=== PATIENT | male | born 1955 | race Caucasian/White ===

== ENCOUNTER 2016-07-17 15:03 | Outpatient (CLI) | payer MEDICARE ==
[2016-07-17 15:36] LABS: INR-International Normal Ratio 3.9; Prothrombin Time 37.6 SEC (12.0-14.7)
== END 2016-07-17 15:04 | disposition home or self-care (01) ==
LOC: MADLAB 15:03
PROVIDERS: ATTEND Internal Medicine Cardiovascular Disease
DX: I48.91 Unspecified atrial fibrillation (principal)
CPT/HCPCS: 36415; 85610

== ENCOUNTER 2016-07-24 15:03 | Outpatient (CLI) | payer MEDICARE ==
[2016-07-24 15:50] LABS: INR-International Normal Ratio 3.8; Prothrombin Time 36.5 SEC (12.0-14.7)
== END 2016-07-24 15:04 | disposition home or self-care (01) ==
LOC: MADLABBHPM 15:03
PROVIDERS: ATTEND Internal Medicine Cardiovascular Disease
DX: I48.1 Persistent atrial fibrillation (principal)
CPT/HCPCS: 36415; 85610

== ENCOUNTER 2016-07-31 15:16 | Outpatient (CLI) | payer MEDICARE ==
[2016-07-31 15:45] LABS: INR-International Normal Ratio 3.9; Prothrombin Time 37.3 SEC (12.0-14.7)
== END 2016-07-31 15:17 | disposition home or self-care (01) ==
LOC: MADLABBHPM 15:16
PROVIDERS: ATTEND Family Medicine
DX: I48.1 Persistent atrial fibrillation (principal)
CPT/HCPCS: 36415; 85610

== ENCOUNTER 2016-08-07 15:21 | Outpatient (CLI) | payer MEDICARE ==
[2016-08-07 16:09] LABS: INR-International Normal Ratio 2.5; Prothrombin Time 27.2 SEC (12.0-14.7)
== END 2016-08-07 15:22 | disposition home or self-care (01) ==
LOC: MADLAB 15:21
PROVIDERS: ATTEND Internal Medicine Cardiovascular Disease
DX: I48.1 Persistent atrial fibrillation (principal)
CPT/HCPCS: 85610

== ENCOUNTER 2016-08-15 10:36 | Outpatient (CLI) | payer MEDICARE ==
[2016-08-15 11:06] LABS: Prothrombin Time 30.6 SEC (12.0-14.7)
== END 2016-08-15 10:37 ==
LOC: MADLABBHPM 10:36
PROVIDERS: ATTEND Nurse Practitioner Adult Health
DX: I48.91 Unspecified atrial fibrillation (principal); E03.9 Hypothyroidism, unspecified; N18.3 Chronic kidney disease, stage 3 (moderate); G40.309 Generalized idiopathic epilepsy and epileptic syndromes, not intractable, without status epilepticus
CPT/HCPCS: 36415; 85610

== ENCOUNTER 2016-08-21 15:28 | Outpatient (CLI) | payer MEDICARE ==
[2016-08-21 15:47] LABS: INR-International Normal Ratio 1.9; Prothrombin Time 21.5 SEC (12.0-14.7)
== END 2016-08-21 15:29 | disposition home or self-care (01) ==
LOC: MADLAB 15:28
PROVIDERS: ATTEND Nurse Practitioner Adult Health
DX: I48.1 Persistent atrial fibrillation (principal)
CPT/HCPCS: 36415; 85610

== ENCOUNTER 2016-08-29 13:46 | Outpatient (CLI) | payer MEDICARE ==
[2016-08-29 14:15] LABS: INR-International Normal Ratio 2.3; Prothrombin Time 24.8 SEC (12.0-14.7)
== END 2016-08-29 13:47 | disposition home or self-care (01) ==
LOC: MADLAB 13:46
PROVIDERS: ATTEND Internal Medicine Cardiovascular Disease
DX: I48.1 Persistent atrial fibrillation (principal)
CPT/HCPCS: 36415; 85610

== ENCOUNTER 2016-09-25 11:51 | Outpatient (CLI) | payer MEDICARE ==
[2016-09-25 12:28] LABS: INR-International Normal Ratio 2.3; Prothrombin Time 25.1 SEC (12.0-14.7)
== END 2016-09-25 11:52 | disposition home or self-care (01) ==
LOC: MADLAB 11:51
PROVIDERS: ATTEND Internal Medicine Cardiovascular Disease
DX: I48.1 Persistent atrial fibrillation (principal)
CPT/HCPCS: 36415; 85610

== ENCOUNTER 2016-10-03 10:10 | Outpatient (CLI) | payer MEDICARE ==
[2016-10-03 10:57] LABS: INR-International Normal Ratio 4.1
== END 2016-10-03 10:11 | disposition home or self-care (01) ==
LOC: MADLAB 10:10
PROVIDERS: ATTEND Internal Medicine Cardiovascular Disease
DX: I48.1 Persistent atrial fibrillation (principal)
CPT/HCPCS: 36415; 85610

== ENCOUNTER 2016-10-10 10:32 | Outpatient (CLI) | payer MEDICARE ==
[2016-10-10 11:30] LABS: INR-International Normal Ratio 2.9; Prothrombin Time 29.7 SEC (12.0-14.7)
== END 2016-10-10 10:33 | disposition home or self-care (01) ==
LOC: MADLAB 10:32
PROVIDERS: ATTEND Internal Medicine Cardiovascular Disease
DX: I48.1 Persistent atrial fibrillation (principal)
CPT/HCPCS: 36415; 85610

== ENCOUNTER 2016-10-11 11:31 | Outpatient (CLI) | payer MEDICARE ==
[2016-10-11 15:25] LABS: INR-International Normal Ratio 2.8; Prothrombin Time 29.1 SEC (12.0-14.7)
== END 2016-10-11 11:32 | disposition home or self-care (01) ==
LOC: MADLAB 11:31
PROVIDERS: ATTEND Internal Medicine Cardiovascular Disease
DX: E78.5 Hyperlipidemia, unspecified (principal); I48.2 Chronic atrial fibrillation; K21.9 Gastro-esophageal reflux disease without esophagitis
CPT/HCPCS: 36415; 85610

== ENCOUNTER 2016-10-24 13:34 | Outpatient (CLI) | payer MEDICARE ==
[2016-10-24 13:49] LABS: INR-International Normal Ratio 3.4; Prothrombin Time 34.2 SEC (12.0-14.7)
== END 2016-10-24 13:35 | disposition home or self-care (01) ==
LOC: MADLAB 13:34
PROVIDERS: ATTEND Emergency Medicine
DX: Z51.81 Encounter for therapeutic drug level monitoring (principal); Z79.01 Long term (current) use of anticoagulants; I48.2 Chronic atrial fibrillation
CPT/HCPCS: 36415; 85610

== ENCOUNTER 2016-11-08 16:52 | Outpatient (CLI) | payer MEDICARE ==
[2016-11-08 17:45] LABS: Prothrombin Time 44.6 SEC (12.0-14.7)
[2016-11-08 17:46] LABS: INR-International Normal Ratio 4.9
== END 2016-11-08 16:53 | disposition home or self-care (01) ==
LOC: MADLABSP 16:52
PROVIDERS: ATTEND Family Medicine
DX: Z51.81 Encounter for therapeutic drug level monitoring (principal); Z79.01 Long term (current) use of anticoagulants
CPT/HCPCS: 85610

== ENCOUNTER 2016-11-15 14:45 | Outpatient (CLI) | payer MEDICARE ==
[2016-11-15 15:32] LABS: INR-International Normal Ratio 3.3; Prothrombin Time 33.2 SEC (12.0-14.7)
== END 2016-11-15 14:46 | disposition home or self-care (01) ==
LOC: MADLABBHPM 14:45
PROVIDERS: ATTEND Family Medicine
DX: Z51.81 Encounter for therapeutic drug level monitoring (principal); I48.1 Persistent atrial fibrillation; Z79.01 Long term (current) use of anticoagulants
CPT/HCPCS: 36415; 85610

== ENCOUNTER 2016-11-23 15:21 | Outpatient (CLI) | payer MEDICARE ==
[2016-11-23 17:14] LABS: Prothrombin Time 43.1 SEC (12.0-14.7)
[2016-11-23 17:23] LABS: INR-International Normal Ratio 4.7
== END 2016-11-23 15:22 | disposition home or self-care (01) ==
LOC: MADLAB 15:21
PROVIDERS: ATTEND Internal Medicine Cardiovascular Disease
DX: I48.1 Persistent atrial fibrillation (principal)
CPT/HCPCS: 36415; 85610

== ENCOUNTER 2016-11-29 11:32 | Outpatient (CLI) | payer MEDICARE ==
[2016-11-29 12:07] LABS: INR-International Normal Ratio 2.8; Prothrombin Time 29.4 SEC (12.0-14.7)
== END 2016-11-29 11:33 | disposition home or self-care (01) ==
LOC: MADLAB 11:32
PROVIDERS: ATTEND Internal Medicine Cardiovascular Disease
DX: I48.1 Persistent atrial fibrillation (principal)
CPT/HCPCS: 36415; 85610

== ENCOUNTER 2016-12-14 14:41 | Outpatient (CLI) | payer MEDICARE ==
[2016-12-14 15:04] LABS: INR-International Normal Ratio 2.9; Prothrombin Time 30.2 SEC (12.0-14.7)
== END 2016-12-14 14:42 | disposition home or self-care (01) ==
LOC: MADLAB 14:41
PROVIDERS: ATTEND Internal Medicine Cardiovascular Disease
DX: I48.1 Persistent atrial fibrillation (principal)
CPT/HCPCS: 36415; 85610

== ENCOUNTER 2016-12-28 11:11 | Outpatient (CLI) | payer MEDICARE ==
[2016-12-28 11:33] LABS: INR-International Normal Ratio 3.1; Prothrombin Time 33.1 SEC (12.0-14.7)
== END 2016-12-28 11:12 | disposition home or self-care (01) ==
LOC: MADLAB 11:11
PROVIDERS: ATTEND Internal Medicine Cardiovascular Disease
DX: I48.1 Persistent atrial fibrillation (principal)
CPT/HCPCS: 36415; 85610

== ENCOUNTER 2017-01-16 10:53 | Outpatient (CLI) | payer MEDICARE ==
[2017-01-16 11:38] LABS: INR-International Normal Ratio 3.1; Prothrombin Time 33.3 SEC (12.0-14.7)
== END 2017-01-16 10:54 | disposition home or self-care (01) ==
LOC: MADLAB 10:53
PROVIDERS: ATTEND Internal Medicine Cardiovascular Disease
DX: I48.1 Persistent atrial fibrillation (principal)
CPT/HCPCS: 36415; 85610

== ENCOUNTER 2017-02-16 14:42 | Outpatient (CLI) | payer MEDICARE ==
[2017-02-16 15:38] LABS: INR-International Normal Ratio 3.4; Prothrombin Time 35.6 SEC (12.0-14.7)
== END 2017-02-16 14:43 | disposition home or self-care (01) ==
LOC: MADLAB 14:42
PROVIDERS: ATTEND Internal Medicine Cardiovascular Disease
DX: I48.1 Persistent atrial fibrillation (principal)
CPT/HCPCS: 36415; 85610

== ENCOUNTER 2017-03-01 11:02 | Outpatient (CLI) | payer MEDICARE ==
[2017-03-01 11:27] LABS: INR-International Normal Ratio 2.6; Prothrombin Time 29.2 SEC (12.0-14.7)
== END 2017-03-01 11:03 | disposition home or self-care (01) ==
LOC: MADLAB 11:02
PROVIDERS: ATTEND Internal Medicine Cardiovascular Disease
DX: I48.1 Persistent atrial fibrillation (principal)
CPT/HCPCS: 36415; 85610

== ENCOUNTER 2017-03-28 17:33 | Outpatient (CLI) | payer MEDICARE ==
[2017-03-29 15:20] LABS: Prothrombin Time 30.4 SEC (12.0-14.7)
[2017-03-29 15:21] LABS: INR-International Normal Ratio 2.8
== END 2017-03-28 17:34 | disposition home or self-care (01) ==
LOC: MADLAB 17:33
PROVIDERS: ATTEND Internal Medicine Cardiovascular Disease
DX: I48.1 Persistent atrial fibrillation (principal)
CPT/HCPCS: 36415; 85610

== ENCOUNTER 2017-04-15 12:24 | Outpatient (CLI) | payer MEDICARE, SELFPAY ==
[2017-04-15 12:53] LABS: INR-International Normal Ratio 2.3; Prothrombin Time 25.8 SEC (12.0-14.7)
== END 2017-04-15 12:25 | disposition home or self-care (01) ==
LOC: MADLAB 12:24
PROVIDERS: ATTEND Internal Medicine Cardiovascular Disease
DX: Z51.81 Encounter for therapeutic drug level monitoring (principal); I48.1 Persistent atrial fibrillation; Z79.01 Long term (current) use of anticoagulants
CPT/HCPCS: 36415; 85610

== ENCOUNTER 2017-05-20 12:41 | Outpatient (CLI) | payer MEDICARE, SELFPAY ==
[2017-05-20 13:15] LABS: INR-International Normal Ratio 2.1
== END 2017-05-20 12:42 | disposition home or self-care (01) ==
LOC: MADLAB 12:41
PROVIDERS: ATTEND Internal Medicine Cardiovascular Disease
DX: I48.1 Persistent atrial fibrillation (principal)
CPT/HCPCS: 36415; 85610

== ENCOUNTER 2017-06-18 17:30 | Outpatient (CLI) | payer MEDICARE ==
[2017-06-18 18:29] LABS: INR-International Normal Ratio 2.2; Prothrombin Time 25.1 SEC (12.0-14.7)
== END 2017-06-18 17:31 | disposition home or self-care (01) ==
LOC: MADLAB 17:30
PROVIDERS: ATTEND Family Medicine
DX: Z51.81 Encounter for therapeutic drug level monitoring (principal); I48.91 Unspecified atrial fibrillation; Z79.01 Long term (current) use of anticoagulants
CPT/HCPCS: 36415; 85610

== ENCOUNTER 2017-07-23 09:44 | Outpatient (CLI) | payer MEDICARE ==
[2017-07-23 11:55] LABS: INR-International Normal Ratio 2.1; Prothrombin Time 24.7 SEC (12.0-14.7)
[2017-07-23 12:04] LABS: ALT (SGPT) 23 U/L (8-55); AST (SGOT) 26 U/L (5-34); Albumin 3.7 g/dL (3.4-4.8); Alkaline Phosphatase 59 U/L (40-150); Anion Gap 10 mmol/L (10-20); BUN (Urea Nitrogen) 20 mg/dL (8.4-25.7); Bilirubin, Direct 0.2 mg/dL (0.1-0.3); Bilirubin, Total 0.4 mg/dL (0.2-1.2); Calc. Creatinine Clearance 0 mL/min (70-130); Calcium 8.7 mg/dL (7.8-10.44); Carbon Dioxide 25 mmol/L (23-31); Cardiac Risk 4.5 (Less than 4.5); Chloride 109 mmol/L (98-107); Cholesterol 134 mg/dl (< 200 Desired); Estimated GFR-MDRD 63; Glucose 71 mg/dL (80-115); HDL Cholesterol 30 mg/dL (>60 Neg Risk); LDL Cholesterol, Calculated 82 mg/dL; Potassium 4.3 mmol/L (3.5-5.1); Sodium 140 mmol/L (136-145); Triglycerides 112 mg/dL (Less than 150)
[2017-07-23 12:07] LABS: #Basophils 0.1 thou/uL (0.0-0.2); #Eosinphils 0.1 thou/uL (0.0-0.7); #Lymphocytes 2.5 thou/uL (1.20-3.40); #Monocytes 0.8 thou/uL (0.11-0.59); %Basophils 1.2 % (0.0-1.0); %Eosinophils 1.6 % (0.0-10.0); %Lymphocytes 46.5 % (21.0-51.0); %Monocytes 14.1 % (0.0-10.0); %Neutrophils 36.6 % (42.0-75.0); Hemoglobin 13.9 g/dL (14.0-18.0); Large Platelets SLIGHT; MDiff Complete? YES; Mean Corpuscular HGB CONC 31.9 g/dL (32.0-36.0); Mean Corpuscular Hemoglobin 30.8 pg (27.0-31.0); Mean Corpuscular Volume 96.8 fl (80.0-94.0); Mean Platelet Volume 10.3 fL (7.4-10.4); PLT Morphology Comment Appears Decreased; Platelet Count 112 thou/uL (130-400); RBC Distribution Width 13.3 % (11.5-14.5); White Blood Cell (WBC) Count 5.3 thou/uL (4.8-10.8)
== END 2017-07-23 09:45 | disposition home or self-care (01) ==
LOC: MADLABBHPM 09:44
PROVIDERS: ATTEND Family Medicine
DX: E03.9 Hypothyroidism, unspecified (principal); I48.91 Unspecified atrial fibrillation; E78.5 Hyperlipidemia, unspecified; N18.3 Chronic kidney disease, stage 3 (moderate); G40.309 Generalized idiopathic epilepsy and epileptic syndromes, not intractable, without status epilepticus
CPT/HCPCS: 36415; 80048; 80061; 80076; 80164; 84443; 85025; 85610

== ENCOUNTER 2017-08-29 16:21 | Outpatient (CLI) | payer OTHER ==
[2017-08-29 17:07] LABS: INR-International Normal Ratio 2.4; Prothrombin Time 27.1 SEC (12.0-14.7)
== END 2017-08-29 16:22 | disposition home or self-care (01) ==
LOC: MADLAB 16:21
PROVIDERS: ATTEND Family Medicine
DX: Z51.81 Encounter for therapeutic drug level monitoring (principal); I48.91 Unspecified atrial fibrillation; Z79.01 Long term (current) use of anticoagulants
CPT/HCPCS: 36415; 85610

== ENCOUNTER 2017-10-03 15:57 | Outpatient (CLI) | payer MEDICARE, OTHER ==
[2017-10-03 16:27] LABS: INR-International Normal Ratio 1.8; Prothrombin Time 21.7 SEC (12.0-14.7)
== END 2017-10-03 15:58 | disposition home or self-care (01) ==
LOC: MADLAB 15:57
PROVIDERS: ATTEND Internal Medicine Cardiovascular Disease
DX: Z51.81 Encounter for therapeutic drug level monitoring (principal); I48.91 Unspecified atrial fibrillation; Z79.01 Long term (current) use of anticoagulants
CPT/HCPCS: 36415; 85610

== ENCOUNTER 2017-10-24 16:58 | Outpatient (CLI) | payer OTHER ==
[2017-10-24 17:28] LABS: Prothrombin Time 23.4 SEC (12.0-14.7)
== END 2017-10-24 16:59 | disposition home or self-care (01) ==
LOC: MADLAB 16:58
PROVIDERS: ATTEND Family Medicine
DX: Z51.81 Encounter for therapeutic drug level monitoring (principal); I48.91 Unspecified atrial fibrillation; Z79.01 Long term (current) use of anticoagulants
CPT/HCPCS: 36415; 85610

== ENCOUNTER 2017-11-11 12:38 | Outpatient (CLI) | payer MEDICARE ==
[2017-11-11 13:11] LABS: INR-International Normal Ratio 2.2; Prothrombin Time 25.6 SEC (12.0-14.7)
== END 2017-11-11 12:39 | disposition home or self-care (01) ==
LOC: MADLAB 12:38
PROVIDERS: ATTEND Internal Medicine Cardiovascular Disease
DX: Z51.81 Encounter for therapeutic drug level monitoring (principal); I48.91 Unspecified atrial fibrillation; Z79.01 Long term (current) use of anticoagulants
CPT/HCPCS: 36415; 85610

== ENCOUNTER 2017-11-26 16:50 | Outpatient (CLI) | payer SELFPAY ==
[2017-11-26 17:29] LABS: Anion Gap 15 mmol/L (10-20); BUN (Urea Nitrogen) 15 mg/dL (8.4-25.7); Calc. Creatinine Clearance 0 mL/min (70-130); Carbon Dioxide 23 mmol/L (23-31); Chloride 105 mmol/L (98-107); Estimated GFR-MDRD 63; Glucose 91 mg/dL (80-115); Potassium 4.5 mmol/L (3.5-5.1); Sodium 138 mmol/L (136-145)
[2017-11-26 17:40] LABS: INR-International Normal Ratio 2.3; Prothrombin Time 26.5 SEC (12.0-14.7)
--- NOTE | 2017-11-26 17:48 | RAD ---
RADIOGRAPH LEFT FOREARM TWO VIEWS: HISTORY: A 61-year-old male, status post acute trauma to left forearm. FINDINGS: No fracture or the radius or ulna. Soft tissue swelling throughout the dorsum of the forearm. IMPRESSION: 1. Acute, traumatic soft tissue contusion of the posterior aspect of the forearm. 2. No fracture of the radius or ulna. POS: [facility]
== END 2017-11-26 16:51 | disposition home or self-care (01) ==
LOC: MADRAD 16:50
PROVIDERS: ATTEND Family Medicine
DX: Z51.81 Encounter for therapeutic drug level monitoring (principal); T14.8XXA Other injury of unspecified body region, initial encounter; N18.3 Chronic kidney disease, stage 3 (moderate); I48.91 Unspecified atrial fibrillation; S50.12XA Contusion of left forearm, initial encounter
CPT/HCPCS: 36415; 80048; 85610

== ENCOUNTER 2017-12-11 12:47 | Outpatient (CLI) | payer OTHER, SELFPAY ==
[2017-12-11 13:35] LABS: INR-International Normal Ratio 2.4; Prothrombin Time 26.1 SEC (12.0-14.7)
[2017-12-11 13:46] LABS: ALT (SGPT) 22 U/L (8-55); AST (SGOT) 23 U/L (5-34); Albumin 3.8 g/dL (3.4-4.8); Alkaline Phosphatase 77 U/L (40-150); Anion Gap 14 mmol/L (10-20); BUN (Urea Nitrogen) 15 mg/dL (8.4-25.7); Bilirubin, Direct 0.2 mg/dL (0.1-0.3); Bilirubin, Total 0.4 mg/dL (0.2-1.2); Calc. Creatinine Clearance 0 mL/min (70-130); Carbon Dioxide 20 mmol/L (23-31); Cardiac Risk 4.1 (Less than 4.5); Chloride 109 mmol/L (98-107); Cholesterol 122 mg/dl (< 200 Desired); Estimated GFR-MDRD 55; Glucose 135 mg/dL (80-115); HDL Cholesterol 30 mg/dL (>60 Neg Risk); LDL Cholesterol, Calculated 58 mg/dL; Potassium 4.2 mmol/L (3.5-5.1); Protein, Total 7.4 g/dL (5.8-8.1); Sodium 139 mmol/L (136-145); Triglycerides 169 mg/dL (Less than 150)
[2017-12-11 14:07] LABS: Hemoglobin 13.5 g/dL (14.0-18.0); Lymphocytes 29 % (21-51); MDiff Complete? YES; Mean Corpuscular HGB CONC 32.1 g/dL (32.0-36.0); Mean Corpuscular Hemoglobin 29.1 pg (27.0-31.0); Mean Corpuscular Volume 90.6 fL (78.0-98.0); Mean Platelet Volume 9.5 fL (7.4-10.4); Monocytes 6 % (0-10); Neutrophil 65 % (42-75); PLT Morphology Comment Appears Adequate; Platelet Count 124 thou/uL (130-400); RBC Distribution Width 14.1 % (11.5-14.5); Red Blood Cell (RBC) Count 4.64 mill/uL (4.70-6.10); White Blood Cell (WBC) Count 5.5 thou/uL (4.8-10.8)
== END 2017-12-11 12:48 | disposition home or self-care (01) ==
LOC: MADLABBHPM 12:47
PROVIDERS: ATTEND Family Medicine
DX: Z51.81 Encounter for therapeutic drug level monitoring (principal); N18.3 Chronic kidney disease, stage 3 (moderate); I48.91 Unspecified atrial fibrillation; E78.5 Hyperlipidemia, unspecified; D69.6 Thrombocytopenia, unspecified; Z79.01 Long term (current) use of anticoagulants
CPT/HCPCS: 36415; 80048; 80061; 80076; 84443; 85025; 85610

== ENCOUNTER → 2017-12-11 | Emergency (ER) | payer SELFPAY ==
[~2017-12-11] MED LIST: Diltiazem 125 MG/25 ML ONE; Furosemide 40 MG/4 ML VIAL ONE; Metoprolol Tartrate 5 MG/5 ML VIAL ONE; Sodium Chloride 0.9% 100 ML BAG ONE; Sodium Chloride 0.9% 500 ML BAG ONE
--- NOTE | 2017-12-11 14:43 | RAD ---
CHEST 2 VIEWS: Date: 12/11/17 HISTORY: Tachycardia. Dyspnea. COMPARISON: 07/05/15. FINDINGS: Cardiac silhouette is upper limits of normal in size. Pulmonary vasculature is unremarkable. Mediasti num is midline. Electronic stimulator pack overlies the left anterior chest wall. There is no conflue nt air space consolidation, pneumothorax, or pleural fluid. IMPRESSION: No active cardiopulmonary abnormalities are demonstrated. POS: [facility]
== END ==
LOC: MADERS 14:14
DX: I48.92 Unspecified atrial flutter (principal); E87.70 Fluid overload, unspecified; E03.9 Hypothyroidism, unspecified; E78.5 Hyperlipidemia, unspecified; G40.909 Epilepsy, unspecified, not intractable, without status epilepticus; N18.9 Chronic kidney disease, unspecified; F17.220 Nicotine dependence, chewing tobacco, uncomplicated; Z79.899 Other long term (current) drug therapy; Z79.01 Long term (current) use of anticoagulants
CPT/HCPCS: 71046; 83880; 93005; 96365; 96375; 96376; J1940; J7050

== ENCOUNTER 2017-12-24 12:17 | Outpatient (CLI) | payer OTHER, SELFPAY ==
[2017-12-24 12:43] LABS: INR-International Normal Ratio 2.8; Prothrombin Time 29.8 SEC (12.0-14.7)
== END 2017-12-24 12:18 | disposition home or self-care (01) ==
LOC: MADLABBHPM 12:17
PROVIDERS: ATTEND Family Medicine
DX: I48.91 Unspecified atrial fibrillation (principal)
CPT/HCPCS: 36415; 85610

== ENCOUNTER 2018-03-10 13:09 | Outpatient (CLI) | payer OTHER, SELFPAY ==
[2018-03-10 13:26] LABS: INR-International Normal Ratio 2.5; Prothrombin Time 27.3 SEC (12.0-14.7)
== END 2018-03-10 13:10 | disposition home or self-care (01) ==
LOC: MADLAB 13:09
PROVIDERS: ATTEND Family Medicine
DX: Z51.81 Encounter for therapeutic drug level monitoring (principal); I48.91 Unspecified atrial fibrillation; Z79.01 Long term (current) use of anticoagulants
CPT/HCPCS: 36415; 85610

== ENCOUNTER 2018-04-13 11:00 | Outpatient (CLI) | payer OTHER, SELFPAY ==
[2018-04-13 12:07] LABS: Prothrombin Time 43.1 SEC (12.0-14.7)
[2018-04-13 14:01] LABS: INR-International Normal Ratio 4.6
== END 2018-04-13 11:01 | disposition home or self-care (01) ==
LOC: MADLAB 11:00
PROVIDERS: ATTEND Family Medicine
DX: Z51.81 Encounter for therapeutic drug level monitoring (principal); I48.91 Unspecified atrial fibrillation; Z79.01 Long term (current) use of anticoagulants
CPT/HCPCS: 36415; 85610

== ENCOUNTER 2018-04-15 16:36 | Outpatient (CLI) | payer MEDICARE, OTHER ==
[2018-04-15 17:23] LABS: INR-International Normal Ratio 2.5; Prothrombin Time 26.7 SEC (12.0-14.7)
== END 2018-04-15 16:37 | disposition home or self-care (01) ==
LOC: MADLAB 16:36
PROVIDERS: ATTEND Family Medicine
DX: Z51.81 Encounter for therapeutic drug level monitoring (principal); I48.91 Unspecified atrial fibrillation; Z79.01 Long term (current) use of anticoagulants
CPT/HCPCS: 36415; 85610

== ENCOUNTER 2018-04-21 12:45 | Outpatient (CLI) | payer OTHER ==
[2018-04-21 13:17] LABS: INR-International Normal Ratio 2.1; Prothrombin Time 23.6 SEC (12.0-14.7)
== END 2018-04-21 12:46 | disposition home or self-care (01) ==
LOC: MADLAB 12:45
PROVIDERS: ATTEND Family Medicine
DX: Z51.81 Encounter for therapeutic drug level monitoring (principal); I48.91 Unspecified atrial fibrillation; Z79.01 Long term (current) use of anticoagulants
CPT/HCPCS: 36415; 85610

== ENCOUNTER 2018-05-05 13:12 | Outpatient (CLI) | payer OTHER ==
[2018-05-05 13:34] LABS: INR-International Normal Ratio 2.1; Prothrombin Time 23.8 SEC (12.0-14.7)
== END 2018-05-05 13:13 | disposition home or self-care (01) ==
LOC: MADLAB 13:12
PROVIDERS: ATTEND Family Medicine
DX: Z51.81 Encounter for therapeutic drug level monitoring (principal); I48.91 Unspecified atrial fibrillation; Z79.01 Long term (current) use of anticoagulants
CPT/HCPCS: 85610

== ENCOUNTER 2018-05-17 14:54 | Outpatient (CLI) | payer OTHER ==
[2018-05-17 15:30] LABS: INR-International Normal Ratio 2.1; Prothrombin Time 23.3 SEC (12.0-14.7)
== END 2018-05-17 14:55 | disposition home or self-care (01) ==
LOC: MADLABBHPM 14:54
PROVIDERS: ATTEND Family Medicine
DX: Z51.81 Encounter for therapeutic drug level monitoring (principal); I48.91 Unspecified atrial fibrillation; Z79.01 Long term (current) use of anticoagulants
CPT/HCPCS: 36415; 85610

== ENCOUNTER 2018-06-02 15:28 | Outpatient (CLI) | payer OTHER ==
[2018-06-02 15:51] LABS: INR-International Normal Ratio 1.8; Prothrombin Time 20.6 SEC (12.0-14.7)
== END 2018-06-02 15:29 | disposition home or self-care (01) ==
LOC: MADLAB 15:28
PROVIDERS: ATTEND Family Medicine
DX: Z51.81 Encounter for therapeutic drug level monitoring (principal); I48.91 Unspecified atrial fibrillation; Z79.01 Long term (current) use of anticoagulants
CPT/HCPCS: 36415; 85610

== ENCOUNTER 2018-06-16 11:35 | Outpatient (CLI) | payer OTHER ==
[2018-06-16 12:08] LABS: INR-International Normal Ratio 1.7; Prothrombin Time 20.3 SEC (12.0-14.7)
== END 2018-06-16 11:36 | disposition home or self-care (01) ==
LOC: MADLAB 11:35
PROVIDERS: ATTEND Family Medicine
DX: Z51.81 Encounter for therapeutic drug level monitoring (principal); I48.91 Unspecified atrial fibrillation; Z79.01 Long term (current) use of anticoagulants
CPT/HCPCS: 85610

== ENCOUNTER 2018-06-30 12:12 | Outpatient (CLI) | payer OTHER ==
[2018-06-30 12:37] LABS: Prothrombin Time 22.9 SEC (12.0-14.7)
== END 2018-06-30 12:13 | disposition home or self-care (01) ==
LOC: MADLAB 12:12
PROVIDERS: ATTEND Family Medicine
DX: Z51.81 Encounter for therapeutic drug level monitoring (principal); I48.91 Unspecified atrial fibrillation; Z79.01 Long term (current) use of anticoagulants
CPT/HCPCS: 85610

== ENCOUNTER 2018-07-14 12:13 | Outpatient (CLI) | payer OTHER ==
[2018-07-14 12:40] LABS: INR-International Normal Ratio 1.8; Prothrombin Time 20.8 SEC (12.0-14.7)
== END 2018-07-14 12:14 | disposition home or self-care (01) ==
LOC: MADLAB 12:13
PROVIDERS: ATTEND Family Medicine
DX: Z51.81 Encounter for therapeutic drug level monitoring (principal); I48.91 Unspecified atrial fibrillation; Z79.01 Long term (current) use of anticoagulants
CPT/HCPCS: 36415; 85610

== ENCOUNTER 2018-08-05 15:09 | Outpatient (CLI) | payer SELFPAY ==
[2018-08-05 15:33] LABS: INR-International Normal Ratio 1.8
== END 2018-08-05 15:10 | disposition home or self-care (01) ==
LOC: MADLAB 15:09
PROVIDERS: ATTEND Family Medicine
DX: Z51.81 Encounter for therapeutic drug level monitoring (principal); I48.91 Unspecified atrial fibrillation; Z79.01 Long term (current) use of anticoagulants
CPT/HCPCS: 36415; 85610

== ENCOUNTER 2018-09-03 17:32 | Outpatient (CLI) | payer OTHER ==
[2018-09-03 18:18] LABS: INR-International Normal Ratio 2.4; Prothrombin Time 25.9 SEC (12.0-14.7)
== END 2018-09-03 17:33 | disposition home or self-care (01) ==
LOC: MADLAB 17:32
PROVIDERS: ATTEND Family Medicine
DX: Z51.81 Encounter for therapeutic drug level monitoring (principal); I48.91 Unspecified atrial fibrillation; Z79.01 Long term (current) use of anticoagulants
CPT/HCPCS: 36415; 85610

== ENCOUNTER 2018-09-29 12:03 | Outpatient (CLI) | payer OTHER ==
[2018-09-29 12:27] LABS: INR-International Normal Ratio 2.1; Prothrombin Time 23.9 SEC (12.0-14.7)
== END 2018-09-29 12:04 | disposition home or self-care (01) ==
LOC: MADLABBHPM 12:03
PROVIDERS: ATTEND Family Medicine
DX: Z51.81 Encounter for therapeutic drug level monitoring (principal); I48.91 Unspecified atrial fibrillation; Z79.01 Long term (current) use of anticoagulants
CPT/HCPCS: 36415; 85610

== ENCOUNTER 2018-11-03 12:26 | Outpatient (CLI) | payer SELFPAY ==
[2018-11-03 12:58] LABS: INR-International Normal Ratio 2.9; Prothrombin Time 30.6 SEC (12.0-14.7)
== END 2018-11-03 12:27 | disposition home or self-care (01) ==
LOC: MADLABBHPM 12:26
PROVIDERS: ATTEND Family Medicine
DX: I48.91 Unspecified atrial fibrillation (principal); Z79.01 Long term (current) use of anticoagulants
CPT/HCPCS: 36415; 85610

== ENCOUNTER 2018-12-01 13:52 | Outpatient (CLI) | payer SELFPAY ==
[2018-12-01 14:20] LABS: INR-International Normal Ratio 3.5; Prothrombin Time 34.5 SEC (12.0-14.7)
== END 2018-12-01 13:53 | disposition home or self-care (01) ==
LOC: MADLAB 13:52
PROVIDERS: ATTEND Family Medicine
DX: Z51.81 Encounter for therapeutic drug level monitoring (principal); I48.91 Unspecified atrial fibrillation; Z79.01 Long term (current) use of anticoagulants
CPT/HCPCS: 36415; 85610

== ENCOUNTER 2018-12-10 13:59 | Outpatient (CLI) | payer OTHER ==
[2018-12-10 14:28] LABS: INR-International Normal Ratio 2.6; Prothrombin Time 27.6 SEC (12.0-14.7)
== END 2018-12-10 14:00 | disposition home or self-care (01) ==
LOC: MADLAB 13:59
PROVIDERS: ATTEND Internal Medicine Nephrology
DX: Z51.81 Encounter for therapeutic drug level monitoring (principal); I48.91 Unspecified atrial fibrillation; Z79.01 Long term (current) use of anticoagulants
CPT/HCPCS: 36415; 85610

== ENCOUNTER 2021-12-12 11:06 | Outpatient (CLI) | payer MEDICARE ==
[2021-12-12 11:28] LABS: #Basophils 0.1 thou/uL (0.0-0.2); #Eosinphils 0.1 thou/uL (0.0-0.7); #Lymphocytes 1.2 thou/uL (1.20-3.40); #Monocytes 0.7 thou/uL (0.11-0.59); #Neutrophils 3.2 thou/uL (1.40-6.50); %Basophils 1.6 % (0.0-1.0); %Eosinophils 1.7 % (0.0-10.0); %Lymphocytes 22.5 % (21.0-51.0); %Monocytes 13.9 % (0.0-10.0); %Neutrophils 60.2 % (42.0-75.0); Hemoglobin 13.3 g/dL (14.0-18.0); Mean Corpuscular HGB CONC 31.7 g/dL (32.0-36.0); Mean Corpuscular Volume 85.3 fL (78.0-98.0); Mean Platelet Volume 11.3 fL (7.4-10.4); Platelet Count 157 thou/uL (130-400); RBC Distribution Width 13.5 % (11.5-14.5); Red Blood Cell (RBC) Count 4.92 mill/uL (4.70-6.10); White Blood Cell (WBC) Count 5.3 thou/uL (4.8-10.8)
[2021-12-12 11:39] LABS: ALT (SGPT) 23 U/L (8-55); AST (SGOT) 24 U/L (5-34); Albumin 4.1 g/dL (3.4-4.8); Alkaline Phosphatase 159 U/L (40-110); Anion Gap 11 mmol/L (10-20); BUN (Urea Nitrogen) 11 mg/dL (8.4-25.7); Bilirubin, Total 0.8 mg/dL (0.2-1.2); Calc. Creatinine Clearance 0 mL/min (70-130); Calcium 9.2 mg/dL (7.8-10.44); Carbon Dioxide 28 mmol/L (23-31); Chloride 96 mmol/L (98-107); Cholesterol 142 mg/dl (< 200 Desired); Estimated GFR 71; Globulin 3.5 g/dL (2.4-3.5); Glucose 73 mg/dL (80-115); HDL Cholesterol 48 mg/dL (>60 Neg Risk); LDL Cholesterol, Calculated 83 mg/dL; Potassium 4.6 mmol/L (3.5-5.1); Protein, Total 7.6 g/dL (5.8-8.1); Sodium 130 mmol/L (136-145); Triglycerides 53 mg/dL (Less than 150)
[2021-12-12 16:16] LABS: Hemoglobin A1c 5.6 % (4.0-6.0)
== END 2021-12-12 11:07 | disposition home or self-care (01) ==
LOC: MADLAB 11:06
PROVIDERS: ATTEND Family Medicine
DX: Z01.818 Encounter for other preprocedural examination (principal); G40.309 Generalized idiopathic epilepsy and epileptic syndromes, not intractable, without status epilepticus; E03.9 Hypothyroidism, unspecified; E78.5 Hyperlipidemia, unspecified; E66.9 Obesity, unspecified
CPT/HCPCS: 36415; 71046; 80053; 80061; 80177; 80183; 83036; 84443; 85025; 93005; 93010